=== PATIENT | male | born 1950 | race Caucasian/White ===

== ENCOUNTER 2020-10-02 16:36 | Inpatient (IN) | payer BC, OTHER ==
[2020-10-02 18:48] LABS: BASO % 0.4 % (0-2.0); HEMATOCRIT 14.8 % (35.4-49); LYMPH % 90.5 % (8-40); MCH 37.2 pg (25.7-33.7); MCHC 34.2 g/dl (32.0-35.9); MEAN CELL VOLUME 108.7 fl (80-96); MEAN PLT VOLUME 8.8 fl (7.5-11.1); NEUT % 5.1 % (42.8-82.8); PLATELET COUNT 43 K/MM3 (134-434); RBC 1.36 M/mm3 (4.00-5.60)
[2020-10-02 18:54] LABS: INR 2.59 (0.83-1.09); PROTHROMBIN TIME (PATIENT) 30.5 SEC (9.7-13.0)
[2020-10-02 18:57] LABS: ACTIVATED PTT 35.1 SECONDS (25.2-36.5)
[2020-10-02 19:08] LABS: CHLORIDE 105 mmol/L (98-107); POTASSIUM 4.4 mmol/L (3.5-5.1); SODIUM 136 mmol/L (136-145)
[2020-10-02 19:10] LABS: CALCIUM 8.9 mg/dL (8.5-10.1)
[2020-10-02 19:11] LABS: ALBUMIN 3.6 g/dl (3.4-5.0); ANION GAP 11 MMOL/L (8-16); BLOOD UREA NITROGEN 25.8 mg/dL (7-18); CO2 20 mmol/L (21-32); GLUCOSE,RANDOM 156 mg/dL (74-106)
[2020-10-02 19:14] LABS: CREATININE 1.4 mg/dL (0.55-1.3); SGOT/AST 34 U/L (15-37); SGPT/ALT 24 U/L (13-61)
[2020-10-02 19:15] LABS: BILIRUBIN,TOTAL 1.4 mg/dL (0.2-1); TOT PROT 7.7 g/dl (6.4-8.2)
[2020-10-02 19:17] LABS: ALK PHOS 98 U/L (45-117)
[2020-10-02 19:51] LABS: HEMOGLOBIN 5.1 GM/dL (11.7-16.9); WHITE BLOOD COUNT 1.5 K/mm3 (4.0-10.0)
[2020-10-02 19:54] LABS: LDH 411 U/L (87-246)
[2020-10-02 20:25] LABS: ANISOCYTOSIS 2+; MACROCYTOSIS 1+; PLATELET ESTIMATE DECREASED; TARGET CELLS 2+
[2020-10-03] MEDS: DEXTROSE 5%-0.45% SALINE 1,000 ML IV SCH ×3 (02:39→23:45)
[2020-10-03] MEDS ORDERED: diazePAM 2 MG TABLET PO ONE (08:46)
[2020-10-03] MEDS ORDERED: diazePAM 2 MG TABLET ONE (08:49)
[2020-10-03] MEDS: INSULIN SLIDING SCALE (NOVOLOG) 1 VIAL SQ SCH ×4 (08:57→21:41)
[2020-10-03 08:58] LABS: BASO % 0.1 % (0-2.0); EOS % 0.1 % (0-4.5); HEMATOCRIT 17.9 % (35.4-49); LYMPH % 73.6 % (8-40); MCH 36.1 pg (25.7-33.7); MCHC 35.4 g/dl (32.0-35.9); MONO % 20.6 % (3.8-10.2); NEUT % 5.6 % (42.8-82.8); PLATELET COUNT 41 K/MM3 (134-434); RBC 1.75 M/mm3 (4.00-5.60); RDW 21.3 % (11.9-15.9)
[2020-10-03 09:04] LABS: HEMOGLOBIN 6.3 GM/dL (11.7-16.9); WHITE BLOOD COUNT 1.4 K/mm3 (4.0-10.0)
[2020-10-03 09:19] LABS: POTASSIUM 3.5 mmol/L (3.5-5.1)
[2020-10-03 09:25] LABS: ALBUMIN 3.5 g/dl (3.4-5.0); BLOOD UREA NITROGEN 28.2 mg/dL (7-18); CALCIUM 8.5 mg/dL (8.5-10.1)
[2020-10-03 09:28] LABS: BILIRUBIN,TOTAL 2.5 mg/dL (0.2-1); CREATININE 1.3 mg/dL (0.55-1.3); TOT PROT 7.6 g/dl (6.4-8.2)
[2020-10-03 10:21] LABS: ANISOCYTOSIS 1+; MACROCYTOSIS 1+; OVALOCYTE 1+; PLATELET ESTIMATE DECREASED
[2020-10-03] MEDS ORDERED: HYDROCHLOROTHIAZIDE 25 MG TABLET (FP) ONE (10:44)
[2020-10-03] MEDS: HYDROCHLOROTHIAZIDE 12.5 MG CAPSULE (FP) PO SCH (10:53)
[2020-10-03] MEDS ORDERED: ATORVASTATIN CA 40 MG TABLET (FP) PO SCH (22:00)
[2020-10-03 23:17] VITALS: BMI 38.3
[2020-10-04] MEDS: INSULIN SLIDING SCALE (NOVOLOG) 1 VIAL SQ SCH ×2 (06:46→11:52)
[2020-10-04 07:19] LABS: BASO % 0.1 % (0-2.0); HEMATOCRIT 18.9 % (35.4-49); LYMPH % 79.3 % (8-40); MCH 34.3 pg (25.7-33.7); MCHC 34.8 g/dl (32.0-35.9); MEAN CELL VOLUME 98.5 fl (80-96); MEAN PLT VOLUME 8.9 fl (7.5-11.1); MONO % 16.8 % (3.8-10.2); NEUT % 3.8 % (42.8-82.8); RBC 1.92 M/mm3 (4.00-5.60); RDW 20.3 % (11.9-15.9)
[2020-10-04 07:32] LABS: POTASSIUM 3.4 mmol/L (3.5-5.1)
[2020-10-04 07:36] LABS: ALBUMIN 3.2 g/dl (3.4-5.0); BLOOD UREA NITROGEN 21.2 mg/dL (7-18)
[2020-10-04 07:37] LABS: CALCIUM 8.2 mg/dL (8.5-10.1)
[2020-10-04 07:39] LABS: CREATININE 1.1 mg/dL (0.55-1.3)
[2020-10-04 08:19] LABS: HEMOGLOBIN 6.6 GM/dL (11.7-16.9)
[2020-10-04 08:20] LABS: PLATELET COUNT 31 K/MM3 (134-434); WHITE BLOOD COUNT 1.4 K/mm3 (4.0-10.0)
[2020-10-04] MEDS: HYDROCHLOROTHIAZIDE 12.5 MG CAPSULE (FP) PO SCH (09:23)
[2020-10-04 09:29] VITALS: PULSE 112
[2020-10-04 11:03] LABS: ANISOCYTOSIS 1+; MACROCYTOSIS 1+; PLATELET ESTIMATE DECREASED
[2020-10-04 13:36] VITALS: BP 123/64; TEMP 98.3
[2020-10-04] MEDS ORDERED: ACYCLOVIR 400 MG TABLET PO SCH (22:00)
[2020-10-05] MEDS ORDERED: ALLOPURINOL 300 MG TABLET (FP) PO SCH (10:00)
[2020-10-05] MEDS ORDERED: FLUCONAZOLE 100 MG TABLET (UD) PO SCH (10:00)
== END 2020-10-04 15:43 | disposition left against medical advice (07) | DRG 841 ==
LOC: JER 16:36 → JERBED 21:26 → J4S 10-03 21:07
PROVIDERS: ADMIT Internal Medicine; ATTEND Internal Medicine
DX: C95.90 Leukemia, unspecified not having achieved remission (principal); D61.818 Other pancytopenia; D46.9 Myelodysplastic syndrome, unspecified; I25.10 Atherosclerotic heart disease of native coronary artery without angina pectoris; I48.0 Paroxysmal atrial fibrillation; E78.5 Hyperlipidemia, unspecified; I10 Essential (primary) hypertension; D69.6 Thrombocytopenia, unspecified; E66.9 Obesity, unspecified; Z68.38 Body mass index [BMI] 38.0-38.9, adult; D70.9 Neutropenia, unspecified; E11.9 Type 2 diabetes mellitus without complications; R06.02 Shortness of breath; Z95.5 Presence of coronary angioplasty implant and graft
CPT/HCPCS: 36415; 36430; 71045-TC-FY; 80053; 82607; 82728; 82746; 82962; 83010; 83540; 83550; 83615; 83880; 84439; 84443; 84466; 84484; 85025; 85045; 85379; 85384; 85610; 85730; 86140; 86850; 86900; 86901; 86922; 87040; 88300-TC; 93005; 93010; 99285-25; C9803; P9058; U0003